=== PATIENT | male | born 1965 | race Caucasian/White ===

== ENCOUNTER 2016-08-17 17:47 | Observation (INO) | payer MEDICARE, OTHER ==
[~2016-08-17] VITALS: Ht 175.3 cm; Wt 81.6 kg
[2016-08-17 19:37] LABS: HEMOGLOBIN 15.1 gm/dl (14.0-17.5); RED BLOOD COUNT 5.09 M/UL (4.20-5.50); WHITE BLOOD COUNT 16.4 K/UL (4.5-11.0)
[2016-08-17 19:55] LABS: BUN/CREATININE RATIO 18 (0-10)
[2016-08-18 08:26] LABS: HEMOGLOBIN 14.6 gm/dl (14.0-17.5); RED BLOOD COUNT 4.98 M/UL (4.20-5.50)
[2016-08-18 08:42] LABS: WHITE BLOOD COUNT 10.2 K/UL (4.5-11.0)
[2016-08-18] MEDS ORDERED: CARBAMAZEPINE200 MG PO (09:36)
[2016-08-18] MEDS ORDERED: NORVASC 5 MG TAB5 MG PO (09:37)
[2016-08-18] MEDS ORDERED: CATAPRES 0.1MG0.1 MG PO (09:37)
[2016-08-18] MEDS ORDERED: ASPIRIN81 MG PO (09:38)
[2016-08-18] MEDS ORDERED: CLOPIDOGREL75 MG PO (09:38)
[2016-08-18] MEDS ORDERED: LISINOPRIL40 MG PO (09:38)
[2016-08-18] MEDS ORDERED: NEURONTIN 400400 MG PO (09:39)
[2016-08-18] MEDS ORDERED: SUBOXONE 8 MG-1 EACH PO ×3 (09:40→11:22)
[2016-08-18] MEDS ORDERED: SPIRIVA18 MCG INH (09:41)
[2016-08-18] MEDS ORDERED: NITROGLYCERIN0.4 MG PO (09:42)
[2016-08-18] MEDS ORDERED: SYMBICORT 160-1 INHA INH (09:44)
[2016-08-18] MEDS ORDERED: LIPITOR TAB 2020 MG PO (11:21)
== END 2016-08-18 13:06 | disposition home or self-care (01) ==
LOC: ER1 17:47 → ZEROF 20:55 → M/S 08-18 08:42
PROVIDERS: Physician Assistant; ADMIT Internal Medicine
DX: R07.9 Chest pain, unspecified (principal); D72.829 Elevated white blood cell count, unspecified; I25.10 Atherosclerotic heart disease of native coronary artery without angina pectoris; I10 Essential (primary) hypertension; J44.9 Chronic obstructive pulmonary disease, unspecified; G40.909 Epilepsy, unspecified, not intractable, without status epilepticus; G89.4 Chronic pain syndrome; F17.210 Nicotine dependence, cigarettes, uncomplicated; Z85.828 Personal history of other malignant neoplasm of skin; Z86.73 Personal history of transient ischemic attack (TIA), and cerebral infarction without residual deficits; Z88.0 Allergy status to penicillin; Z79.82 Long term (current) use of aspirin; Z79.899 Other long term (current) drug therapy; Z98.890 Other specified postprocedural states
CPT/HCPCS: 36415; 71010; 80053; 80061; 82550; 82553; 83874; 84484; 85025; 93005; 94640; 94664; 96374; 99285; G0378; J2270; Q0162